=== PATIENT | male | born 2000 | race Two or more races ===

== ENCOUNTER 2024-09-13 08:35 | Emergency (ER) | payer OTHER ==
[~2024-09-13] VITALS: Ht 170.2 cm; Wt 68.0 kg
[~2024-09-13 08:35] MED LIST: ALBUTEROL2.5 MG/3 M IH; TUSNEL LIQUID178 ML PO; ZITHROMAX500 MG PO
[2024-09-13] MEDS ORDERED: KETOROLAC TROMETHAMINE 60 MG VIAL IM ONE ×2 (10:00→10:11)
[2024-09-13] MEDS ORDERED: ORPHENADRINE CITRATE 30 MG/ML AMPUL IM ONE (10:00)
[2024-09-13] MEDS ORDERED: ORPHENADRINE CITRATE 30 MG/ML AMPUL ONE (10:11)
[2024-09-13] MEDS ORDERED: NORFLEX100MG PO (11:57)
[2024-09-13] MEDS ORDERED: KETO10TA2 PO (11:57)
== END 2024-09-13 12:36 | disposition home or self-care (01) ==
LOC: ER 08:35
DX: M62.838 Other muscle spasm (principal)